=== PATIENT | male | born 1980 | race Caucasian/White ===

== ENCOUNTER 2019-08-18 01:59 | Emergency (ER) | payer OTHER ==
[~2019-08-18] VITALS: Ht 175.3 cm; Wt 71.7 kg
[~2019-08-18 01:59] MED LIST: CLINDAMYCIN HC150 MG; IBUPROFEN800 MG
== END 2019-08-18 04:20 | disposition home or self-care (01) ==
LOC: ER 01:59
DX: R07.89 Other chest pain (principal)